=== PATIENT | male | born 2000 | race Caucasian/White ===

== ENCOUNTER 2024-03-07 09:44 | Outpatient (CLI) | payer OTHER, SELFPAY | END 2024-03-07 09:45 | disposition home or self-care (01) | LOC: NFLDUCREF 09:45 | PROVIDERS: PCP Nurse Practitioner Family; Visit Provider Nurse Practitioner Family | DX: R10.9 Unspecified abdominal pain (principal); R82.90 Unspecified abnormal findings in urine | CPT/HCPCS: 87086 ==